=== PATIENT | female | born 2000 | race Two or more races ===

== ENCOUNTER 2024-03-28 07:34 | Emergency (ER) | payer OTHER ==
[~2024-03-28] VITALS: Ht 160 cm; Wt 47.6 kg
[2024-03-28] MEDS ORDERED: hydrOXYzine PAMOATE 50 MG CAPSULE PO ONE (08:16)
[2024-03-28] MEDS ORDERED: VISTARIL25 MG PO (08:19)
[2024-03-28] MEDS ORDERED: hydrOXYzine PAMOATE 50 MG CAPSULE PO STA (08:20)
== END 2024-03-28 08:26 | disposition home or self-care (01) ==
LOC: ER 07:35
DX: F41.9 Anxiety disorder, unspecified (principal); Z88.8 Allergy status to other drugs, medicaments and biological substances

== ENCOUNTER 2024-09-14 09:32 | Emergency (ER) | payer OTHER ==
[~2024-09-14] VITALS: Ht 160 cm; Wt 49.9 kg
[~2024-09-14 09:32] MED LIST: VISTARIL25 MG PO
[2024-09-14] MEDS ORDERED: ONDANSETRON HCL 2 MG/ML VIAL IV STA (10:20)
[2024-09-14] MEDS ORDERED: 0.9 % SODIUM CHLORIDE 1,000 ML IV STA (10:21)
[2024-09-14] MEDS ORDERED: FAMOTIDINE/PF 20 MG/2 ML VIAL IV PUSH STA (10:24)
[2024-09-14] MEDS ORDERED: FAMOTIDINE/PF 20 MG/2 ML VIAL ONE (10:25)
[2024-09-14] MEDS ORDERED: ONDANSETRON HCL 2 MG/ML VIAL ONE (10:25)
[2024-09-14 10:56] LABS: HEMATOCRIT 39.3 % (36.0-45.00); MEAN CELL VOLUME 91.8 fL (80.00-100.00); MEAN CORPUSCULAR HEMOGLOBIN 30.5 pg (27.00-32.0); MEAN CORPUSCULAR HGB CONC 33.2 g/dl (32.0-36.0); PLATELET COUNT 287 K/uL (150-450); RED BLOOD COUNT 4.28 M/uL (4.00-6.00); RED CELL DISTRIBUTION WIDTH 12.5 % (11.5-14.5)
[2024-09-14 11:28] LABS: CALCIUM 8.7 mg/dL (8.5-10.1); CREATININE SERUM 0.79 mg/dL (0.55-1.02); GFR 89.41; POTASSIUM 3.79 mEq/L (3.5-5.1)
[2024-09-14] MEDS ORDERED: PROMETHAZINE HCL 25 MG/ML AMPUL IM ONE (12:30)
[2024-09-14] MEDS ORDERED: KETOROLAC TROMETHAMINE 30 MG VIAL IU ONE (13:00)
[2024-09-14] MEDS ORDERED: hydrOXYzine PAMOATE 50 MG CAPSULE PO ONE (13:45)
[2024-09-14] MEDS ORDERED: KETOROLAC TROMETHAMINE 60 MG VIAL IM ONE (16:15)
[2024-09-14] MEDS ORDERED: ZOFRAN8 MG PO (16:16)
[2024-09-14] MEDS ORDERED: PEPCID AC20 MG PO (16:16)
== END 2024-09-14 16:39 | disposition home or self-care (01) ==
LOC: ER 09:32
PROVIDERS: Emergency Medicine
DX: R11.2 Nausea with vomiting, unspecified (principal); R12 Heartburn; Z88.8 Allergy status to other drugs, medicaments and biological substances